=== PATIENT | male | born 1980 | race Caucasian/White ===

== ENCOUNTER 2017-11-04 19:15 | Emergency (ER) | payer MEDICARE, MEDICAID ==
[~2017-11-04] VITALS: Ht 162.6 cm; Wt 119.9 kg
[~2017-11-04 19:15] MED LIST: ALBU8.5H4 IH; AZIT-63 PO; CYCL-1 PO; DOCU-28 PO; HYDR25SU32 RC; ILOP2TAB2 PO; LAMO200T2 PO; LIDO20SO16 PO; LURA40TA PO; METF500T PO; METH4TAB3 PO; OMEP-84 PO; PHEN30SP9 PO; POTA20TA19 PO; QUET-1 PO; SERT100T10 PO; SUCR1TAB34 PO; TRAZ-146 PO; ZOL50T PO; [UNRECOGNIZED DRUG - CODE] PO
[2017-11-04 19:19] VITALS: BP 129/86
[2017-11-04] MEDS ORDERED: ibuprofen tablet 400 MG TABLET PO ONE (19:45)
== END 2017-11-04 19:52 | disposition home or self-care (01) ==
LOC: ER 19:16
DX: S39.012A Strain of muscle, fascia and tendon of lower back, initial encounter (principal); G89.29 Other chronic pain; J45.909 Unspecified asthma, uncomplicated; F17.200 Nicotine dependence, unspecified, uncomplicated; Z79.899 Other long term (current) drug therapy; Z88.1 Allergy status to other antibiotic agents; Z88.8 Allergy status to other drugs, medicaments and biological substances; X58.XXXA Exposure to other specified factors, initial encounter; Y93.02 Activity, running; Y92.89 Other specified places as the place of occurrence of the external cause; Y99.8 Other external cause status
CPT/HCPCS: 99283

== ENCOUNTER 2017-12-27 15:48 | Emergency (ER) | payer MEDICARE, MEDICAID ==
[~2017-12-27] VITALS: Ht 175.3 cm; Wt 110.0 kg
[2017-12-27 17:13] VITALS: BP 134/57
== END 2017-12-27 17:14 | disposition home or self-care (01) ==
LOC: ER 15:48
DX: M25.512 Pain in left shoulder (principal); J45.909 Unspecified asthma, uncomplicated; G89.29 Other chronic pain; F12.90 Cannabis use, unspecified, uncomplicated; Z79.84 Long term (current) use of oral hypoglycemic drugs; Z79.899 Other long term (current) drug therapy; Z88.8 Allergy status to other drugs, medicaments and biological substances; Z56.0 Unemployment, unspecified
CPT/HCPCS: 93005; 99283

== ENCOUNTER 2018-06-13 08:26 | Emergency (ER) | payer MEDICARE, MEDICAID ==
[~2018-06-13] VITALS: Ht 162.6 cm; Wt 120.4 kg
[~2018-06-13 08:26] MED LIST changes: +CLIN300C85 PO; -TRAZ-146 PO; +TRAZ-219 PO
[2018-06-13] MEDS ORDERED: ketorolac trometh inj. 60 MG/2 ML VIAL IM ONE (08:50)
[2018-06-13 09:15] LABS: CLARITY,URINE CLEAR (Clear); COLOR,URINE YELLOW (Yellow); GLUCOSE, URINE NEGATIVE (Neg); KETONES,URINE NEGATIVE (Neg); LEUKOCYTE ESTERASE ,URINE NEGATIVE (Neg); NITRITES, URINE NEGATIVE (Neg); OCCULT BLOOD,URINE NEGATIVE (Neg); PROTEIN,URINE NEGATIVE (Neg); UROBILINOGEN,URINE 0.2 E.U/dL (0.2-1.0)
[2018-06-13 09:16] LABS: UA COLLECTION TYPE CLN CATCH MIDSTREAM
[2018-06-13 09:27] VITALS: BP 122/85
== END 2018-06-13 09:29 | disposition home or self-care (01) ==
LOC: ER 08:26
DX: M54.5 Low back pain (principal); R05 Cough; J45.909 Unspecified asthma, uncomplicated; G89.29 Other chronic pain; F41.9 Anxiety disorder, unspecified; F17.200 Nicotine dependence, unspecified, uncomplicated; F32.9 Major depressive disorder, single episode, unspecified; F12.10 Cannabis abuse, uncomplicated; F20.9 Schizophrenia, unspecified; Z90.49 Acquired absence of other specified parts of digestive tract; Z87.11 Personal history of peptic ulcer disease; Z79.899 Other long term (current) drug therapy; Z88.1 Allergy status to other antibiotic agents; Z88.8 Allergy status to other drugs, medicaments and biological substances
CPT/HCPCS: 81003; 96372; 99283; J1885

== ENCOUNTER 2018-06-16 13:13 | Emergency (ER) | payer MEDICARE, MEDICAID ==
[~2018-06-16] VITALS: Ht 162.6 cm; Wt 120.0 kg
[2018-06-16 13:31] VITALS: BP 127/88
== END 2018-06-16 14:31 | disposition home or self-care (01) ==
LOC: ER 13:13
DX: M54.5 Low back pain (principal); J45.909 Unspecified asthma, uncomplicated; G89.29 Other chronic pain; F12.90 Cannabis use, unspecified, uncomplicated; Z56.0 Unemployment, unspecified; Z88.8 Allergy status to other drugs, medicaments and biological substances; Z88.1 Allergy status to other antibiotic agents; Z79.899 Other long term (current) drug therapy; Z90.49 Acquired absence of other specified parts of digestive tract; Z79.2 Long term (current) use of antibiotics
CPT/HCPCS: 99281

== ENCOUNTER 2018-09-05 18:16 | Emergency (ER) | payer MEDICARE, MEDICAID ==
[~2018-09-05] VITALS: Ht 162.6 cm; Wt 105.5 kg
[~2018-09-05 18:16] MED LIST changes: +ONDA4TAB9 SL
[2018-09-05 19:29] LABS: BASOPHILS % (AUTO) 0.2 % (0-1); EOSINOPHILS # (AUTO) 0.2 X10'3 (0-0.9); EOSINOPHILS % (AUTO) 1.9 % (0-6); HEMATOCRIT 42.1 % (42.0-52.0); LYMPHOCYTES # (AUTO) 1.8 X10'3 (1.1-4.8); LYMPHOCYTES % (AUTO) 19.1 % (21-51); MEAN CORPUSCULAR HEMOGLOBIN 29.5 PG (27.0-31.0); MEAN CORPUSCULAR HGB CONC 33.2 % (33.0-36.5); MEAN CORPUSCULAR VOLUME 88.6 FL (78-98); MEAN PLATELET VOLUME 7.4 FL (7.4-10.4); MONOCYTES # (AUTO) 1.1 X10'3 (0-0.9); MONOCYTES % (AUTO) 11.5 % (2-12); NEUTROPHILS # (AUTO) 6.2 X10'3 (1.8-7.7); NEUTROPHILS % (AUTO) 67.3 % (42-75); PLATELET COUNT 205 X10'3 (140-440); RED BLOOD COUNT 4.75 X10'6 (4.70-6.10); RED CELL DISTRIBUTION WIDTH 13.8 % (11.5-14.5); WHITE BLOOD COUNT 9.3 X10'3 (4.5-11.0)
[2018-09-05 19:43] LABS: INR 1.2 INR; PROTHROMBIN TIME 11.7 SECONDS (9.0-12.0)
[2018-09-05 19:44] LABS: ALANINE AMINOTRANSFERASE 18 U/L (12-78); ALBUMIN 3.5 G/DL (3.4-5.0); ALBUMIN/GLOBULIN RATIO 0.9 (1.1-1.5); ALKALINE PHOSPHATASE 78 IU/L (46-116); ANION GAP 7 (8-16); ASPARTATE AMINO TRANSFERASE 19 U/L (10-37); BILIRUBIN,TOTAL 0.7 MG/DL (0.1-1.0); BLOOD UREA NITROGEN 11 MG/DL (7-18); BUN/CREATININE RATIO 9.6 (5.4-32.0); CALCIUM 8.7 MG/DL (8.5-10.1); CHLORIDE 101 MMOL/L (99-107); CREATININE 1.14 MG/DL (0.60-1.10); GLUCOSE 103 MG/DL (70-104); PARTIAL THROMBOPLASTIN TIME 33 SECONDS (22-32); POTASSIUM 3.3 MMOL/L (3.5-5.1); SODIUM 139 MMOL/L (135-145); TOTAL PROTEIN 7.3 G/DL (6.4-8.2); eGFR 72 ML/MIN
[2018-09-05] MEDS ORDERED: diatr meglu/diatrizoate 30ml oral sol.-(3 dose) bottle PO ONE (20:45)
[2018-09-05] MEDS ORDERED: diatrozoate meglu/diatrozoate sod (37% iodine) 120ML oral solution PO ONE (20:45)
[2018-09-05] MEDS ORDERED: diatrozoate meglu/diatrozoate sod (37% iodine) 120ML oral solution ONE (20:47)
[2018-09-05 22:18] VITALS: BP 109/57
== END 2018-09-05 22:23 | disposition home or self-care (01) ==
LOC: ER 18:17
DX: R07.89 Other chest pain (principal); R05 Cough; R11.0 Nausea; M79.10 Myalgia, unspecified site; G89.29 Other chronic pain; M54.40 Lumbago with sciatica, unspecified side; J45.909 Unspecified asthma, uncomplicated; F12.90 Cannabis use, unspecified, uncomplicated; Z90.49 Acquired absence of other specified parts of digestive tract; Z56.0 Unemployment, unspecified; Z88.8 Allergy status to other drugs, medicaments and biological substances; Z79.2 Long term (current) use of antibiotics; Z79.899 Other long term (current) drug therapy
CPT/HCPCS: 36415; 71045; 74220; 80053; 84484; 85025; 85610; 85730; 93005; 99285; Q9963

== ENCOUNTER 2018-10-24 21:16 | Emergency (ER) | payer MEDICARE, MEDICAID ==
[~2018-10-24] VITALS: Ht 162.6 cm; Wt 111.3 kg
[~2018-10-24 21:16] MED LIST changes: +BENZ-16 PO; +LORA-983 PO; -ONDA4TAB9 SL
[2018-10-24 21:21] VITALS: BP 132/91
--- NOTE | 2018-10-24 23:42 | NUR ---
pt states having head and spine pain
[2018-10-25] MEDS ORDERED: diphenhydrAMINE 25mg capsule PO ONE (00:15)
[2018-10-25] MEDS ORDERED: PROC-8 PO (00:15)
[2018-10-25] MEDS ORDERED: proCHLORperazine 10mg tablet PO ONE (00:15)
[2018-10-25] MEDS ORDERED: acetaminophen 325mg tablet PO ONE (00:15)
== END 2018-10-25 00:33 | disposition home or self-care (01) ==
LOC: ER 21:17
DX: J06.9 Acute upper respiratory infection, unspecified (principal); R51 Headache; J45.909 Unspecified asthma, uncomplicated; G89.29 Other chronic pain; F12.90 Cannabis use, unspecified, uncomplicated; Z88.1 Allergy status to other antibiotic agents; Z88.8 Allergy status to other drugs, medicaments and biological substances; Z79.2 Long term (current) use of antibiotics; Z79.84 Long term (current) use of oral hypoglycemic drugs; Z79.899 Other long term (current) drug therapy; Z56.0 Unemployment, unspecified
CPT/HCPCS: 99284; Q0163; Q0164

== ENCOUNTER 2018-12-06 16:19 | Emergency (ER) | payer MEDICARE, MEDICAID ==
[~2018-12-06] VITALS: Ht 162.6 cm; Wt 117.3 kg
[~2018-12-06 16:19] MED LIST changes: -BENZ-16 PO; +PROC-8 PO
[2018-12-06 16:57] VITALS: BP 134/85
[2018-12-06 17:33] LABS: BASOPHILS # (AUTO) 0.1 X10'3 (0-0.2); BASOPHILS % (AUTO) 0.8 % (0-1); HEMOGLOBIN 15.3 g/dl (14.0-17.9); LYMPHOCYTES # (AUTO) 2.3 X10'3 (1.1-4.8)
[2018-12-06 17:37] LABS: EOSINOPHILS # (AUTO) 0.6 X10'3 (0-0.9); EOSINOPHILS % (AUTO) 6.7 % (0-6); HEMATOCRIT 47.6 % (42.0-52.0); LYMPHOCYTES % (AUTO) 27.5 % (21-51); MEAN CORPUSCULAR HGB CONC 32.2 g/dL (33.0-36.5); MEAN CORPUSCULAR VOLUME 90.2 FL (78-98); MEAN PLATELET VOLUME 8.3 FL (7.4-10.4); MONOCYTES # (AUTO) 0.7 X10'3 (0-0.9); NEUTROPHILS # (AUTO) 4.6 X10'3 (1.8-7.7); PLATELET COUNT 260 X10'3 (140-440); RED BLOOD COUNT 5.28 X10'6 (4.70-6.10); RED CELL DISTRIBUTION WIDTH 13.2 % (11.5-14.5); WHITE BLOOD COUNT 8.3 X10'3 (4.5-11.0)
[2018-12-06 17:41] LABS: ALANINE AMINOTRANSFERASE 22 U/L (12-78); ALBUMIN 3.7 G/DL (3.4-5.0); ALBUMIN/GLOBULIN RATIO 0.9 (1.1-1.5); ALKALINE PHOSPHATASE 88 IU/L (46-116); ANION GAP 9 (8-16); ASPARTATE AMINO TRANSFERASE 33 U/L (10-37); BILIRUBIN,TOTAL 0.3 MG/DL (0.1-1.0); BLOOD UREA NITROGEN 10 MG/DL (7-18); BUN/CREATININE RATIO 8.8 (5.4-32.0); CHLORIDE 102 MMOL/L (99-107); CREATININE 1.13 MG/DL (0.60-1.10); GLUCOSE 99 MG/DL (70-104); INR 1.1 INR; PARTIAL THROMBOPLASTIN TIME 31 SECONDS (22-32); POTASSIUM 3.8 MMOL/L (3.5-5.1); PROTHROMBIN TIME 10.7 SECONDS (9.0-12.0); SODIUM 141 MMOL/L (135-145); TOTAL CARBON DIOXIDE 29.7 MMOL/L (24-32); TOTAL PROTEIN 7.6 G/DL (6.4-8.2); eGFR 72 ML/MIN
== END 2018-12-07 00:06 | disposition left against medical advice (07) ==
LOC: ER 16:19
DX: R07.9 Chest pain, unspecified (principal); Z53.21 Procedure and treatment not carried out due to patient leaving prior to being seen by health care provider
CPT/HCPCS: 36415; 71045; 80053; 84484; 85025; 85610; 85730; 93005

== ENCOUNTER 2019-04-28 21:13 | Emergency (ER) | payer MEDICARE, MEDICAID ==
[~2019-04-28] VITALS: Ht 170.2 cm; Wt 115.0 kg
[~2019-04-28 21:13] MED LIST changes: +CLIN-96 PO; -CLIN300C85 PO
[2019-04-28 21:26] VITALS: BP 136/88
[2019-04-28] MEDS ORDERED: PENI250T2 PO (22:10)
== END 2019-04-28 22:23 | disposition home or self-care (01) ==
LOC: ER 21:13
DX: K04.7 Periapical abscess without sinus (principal); J45.909 Unspecified asthma, uncomplicated; G89.29 Other chronic pain; F41.9 Anxiety disorder, unspecified; F31.9 Bipolar disorder, unspecified; F20.9 Schizophrenia, unspecified; F12.90 Cannabis use, unspecified, uncomplicated; Z90.49 Acquired absence of other specified parts of digestive tract; Z88.8 Allergy status to other drugs, medicaments and biological substances; Z88.1 Allergy status to other antibiotic agents; Z79.84 Long term (current) use of oral hypoglycemic drugs; Z79.899 Other long term (current) drug therapy; Z56.0 Unemployment, unspecified
CPT/HCPCS: 99283

== ENCOUNTER 2019-05-26 21:40 | Emergency (ER) | payer MEDICARE, MEDICAID ==
[~2019-05-26] VITALS: Ht 162.6 cm; Wt 118.2 kg
[~2019-05-26 21:40] MED LIST changes: +SERT-153 PO; -ZOL50T PO
[2019-05-26 22:23] LABS: BASOPHILS # (AUTO) 0.1 X10'3 (0-0.2); BASOPHILS % (AUTO) 1.1 % (0-1); EOSINOPHILS # (AUTO) 0.6 X10'3 (0-0.9); EOSINOPHILS % (AUTO) 5.8 % (0-6); HEMATOCRIT 42.3 % (42.0-52.0); HEMOGLOBIN 14.2 g/dl (14.0-17.9); LYMPHOCYTES # (AUTO) 2.7 X10'3 (1.1-4.8); LYMPHOCYTES % (AUTO) 27.2 % (21-51); MEAN CORPUSCULAR HEMOGLOBIN 30.2 PG (27.0-31.0); MEAN CORPUSCULAR HGB CONC 33.6 g/dL (33.0-36.5); MEAN CORPUSCULAR VOLUME 89.9 FL (78-98); MEAN PLATELET VOLUME 7.9 FL (7.4-10.4); MONOCYTES # (AUTO) 0.7 X10'3 (0-0.9); MONOCYTES % (AUTO) 7.6 % (2-12); NEUTROPHILS # (AUTO) 5.8 X10'3 (1.8-7.7); NEUTROPHILS % (AUTO) 58.3 % (42-75); PLATELET COUNT 221 X10'3 (140-440); RED BLOOD COUNT 4.71 X10'6 (4.70-6.10); RED CELL DISTRIBUTION WIDTH 14.5 % (11.5-14.5); WHITE BLOOD COUNT 9.9 X10'3 (4.5-11.0)
[2019-05-26 22:33] LABS: ALANINE AMINOTRANSFERASE 17 U/L (12-78); ALBUMIN 3.4 G/DL (3.4-5.0); ALKALINE PHOSPHATASE 84 IU/L (46-116); ANION GAP 10 (8-16); ASPARTATE AMINO TRANSFERASE 12 U/L (10-37); BILIRUBIN,TOTAL 0.2 MG/DL (0.1-1.0); BLOOD UREA NITROGEN 14 MG/DL (7-18); BUN/CREATININE RATIO 11.5 (5.4-32.0); CALCIUM 8.3 MG/DL (8.5-10.1); CHLORIDE 107 MMOL/L (99-107); CREATININE 1.22 MG/DL (0.60-1.10); GLUCOSE 103 MG/DL (70-104); POTASSIUM 3.5 MMOL/L (3.5-5.1); SODIUM 143 MMOL/L (135-145); TOTAL CARBON DIOXIDE 26.2 MMOL/L (24-32); TOTAL PROTEIN 6.9 G/DL (6.4-8.2); eGFR 66 ML/MIN
[2019-05-26 22:36] LABS: TROPONIN I < 0.04 NG/ML (0.0-0.05)
[2019-05-26 22:38] LABS: PARTIAL THROMBOPLASTIN TIME 30 SECONDS (22-32)
[2019-05-27] MEDS ORDERED: LIDOcaine Viscous 15ml cup PO ONE (00:25)
[2019-05-27] MEDS ORDERED: mag hydrox/Alum hydrox/simeth 30ml oral suspension PO ONE (00:25)
[2019-05-27 00:35] VITALS: BP 102/73
== END 2019-05-27 00:38 | disposition home or self-care (01) ==
LOC: ER 21:41
DX: R07.89 Other chest pain (principal); R13.19 Other dysphagia; J02.9 Acute pharyngitis, unspecified; J45.909 Unspecified asthma, uncomplicated; G89.29 Other chronic pain; F17.200 Nicotine dependence, unspecified, uncomplicated; F12.90 Cannabis use, unspecified, uncomplicated; Z56.0 Unemployment, unspecified; Z90.49 Acquired absence of other specified parts of digestive tract; Z88.8 Allergy status to other drugs, medicaments and biological substances; Z88.1 Allergy status to other antibiotic agents; Z79.899 Other long term (current) drug therapy
CPT/HCPCS: 36415; 71045; 80053; 84484; 85025; 85610; 85730; 93005; 99284

== ENCOUNTER 2022-01-12 20:46 | Emergency (ER) | payer MEDICARE, MEDICAID ==
[~2022-01-12] VITALS: Ht 162.6 cm; Wt 113.6 kg
[~2022-01-12 20:46] MED LIST changes: -AZIT-63 PO; +AZIT-83 PO; -CLIN-96 PO; +CLIN-97 PO; +POTA-207 PO; -POTA20TA19 PO; +SERT-434 PO; -SERT100T10 PO; -TRAZ-219 PO; +TRAZ-256 PO
[2022-01-12 23:28] VITALS: BP 119/81
== END 2022-01-12 23:38 | disposition home or self-care (01) ==
LOC: ER 20:46
DX: R07.81 Pleurodynia (principal); R05.9 Cough, unspecified; J45.909 Unspecified asthma, uncomplicated; G89.29 Other chronic pain; F41.9 Anxiety disorder, unspecified; F31.9 Bipolar disorder, unspecified; F20.9 Schizophrenia, unspecified; F12.90 Cannabis use, unspecified, uncomplicated; Z87.01 Personal history of pneumonia (recurrent); Z87.11 Personal history of peptic ulcer disease; Z90.89 Acquired absence of other organs; Z56.0 Unemployment, unspecified; Z88.1 Allergy status to other antibiotic agents; Z88.8 Allergy status to other drugs, medicaments and biological substances; Z79.2 Long term (current) use of antibiotics; Z79.899 Other long term (current) drug therapy
CPT/HCPCS: 71045; 99283